=== PATIENT | female | born 1965 | race Caucasian/White ===

== ENCOUNTER 2025-05-13 07:18 | Emergency (ER) | payer OTHER ==
[~2025-05-13] VITALS: Ht 165.1 cm; Wt 107.2 kg
[2025-05-13] MEDS ORDERED: LACTATED RINGER'S 1,000 ML INJ ONE ×2 (08:00→08:15)
[2025-05-13] MEDS ORDERED: METFORMIN HCL500 M2 PO (08:01)
[2025-05-13] MEDS ORDERED: LISINOPRIL10 MG PO (08:01)
[2025-05-13] MEDS ORDERED: METOPROLOL SUCC50 MG PO (08:01)
[2025-05-13] MEDS ORDERED: SODIUM CHLORIDE 0.9% 1000ML 1,000 ML ONE ×2 (08:12→08:13)
[2025-05-13] MEDS ORDERED: INSULIN REGULAR, HUMAN 100 UNIT/1 ML ONE (08:12)
[2025-05-13] MEDS: SODIUM CHLORIDE 0.9% 1000ML 1,000 ML IV SCH ×2 (08:43)
[2025-05-13 10:50] VITALS: PULSE 110; RESP 18; TEMP 99.2; O2SAT 96
[2025-05-13] MEDS: INSULIN REGULAR, HUMAN 100 UNIT/1 ML IV ONE (11:03)
== END 2025-05-13 10:50 | disposition home or self-care (01) ==
LOC: FSED 08:00
DX: E11.65 Type 2 diabetes mellitus with hyperglycemia (principal); I10 Essential (primary) hypertension
CPT/HCPCS: 36415; 80053; 81003; 82948; 85025; 96374; 99284; J7030